=== PATIENT | male | born 1960 | race Caucasian/White ===

== ENCOUNTER 2020-02-01 15:05 | Outpatient (CLI) | payer BC ==
--- NOTE | 2020-02-02 09:12 | MRI ---
MRI CERVICAL SPINE WITHOUT CONTRAST: Date: 02/01/2020 INDICATION: Cervical stenosis of spine. Neck pain. Left upper extremity pain. FINDINGS: Moderate degenerative changes of cervical spine noted. There is loss of disc space with degenerative disc changes at C3-4, C4-5, C5-6, and C6-7. Anterior osteophytes are seen within the cervical vertebr a. Posterior spondylosis. C2-3: No significant abnormality. C3-4: Disc bulge and spondylosis efface the anterior subarachnoid space and abut the anterior cord. Mild bilateral foraminal stenosis due to facet an uncinate hypertrophy. C4-5: Posterior disc bulge and spondylosis efface the anterior subarachnoid space. Facet hypertrophy and uncinate hypertrophy results in mild bilateral foraminal stenosis. C5-6: Posterior disc bulge and spondylosis flatten the thecal sac and mildly efface the anterior sub arachnoid space. Mild bilateral foraminal stenosis, more prominent on the right due to uncinate hyper trophy. C6-7: Posterior disc bulge and spondylosis flatten the thecal sac and efface the anterior subarachno id space. No significant cord impingement. Bilateral foraminal narrowing due to facet and uncinate hy pertrophy. C7-T1: There is a small focal disc protrusion paracentrally to the left associated with broad based bulge and spondylosis. The small protrusion flattens the anterior thecal sac on the left and abuts an d mildly compresses the anterior cord on the left. No significant foraminal stenosis. IMPRESSION: Multilevel degenerative disc changes of the cervical spine as described. Posterior disc bulge and spo ndylosis at multiple levels with foraminal narrowing as described above. Small disc protrusion to the left at C7-T1. POS: OFF
== END 2020-02-01 15:06 | disposition home or self-care (01) ==
LOC: BICMRI 15:05
PROVIDERS: ATTEND Orthopaedic Surgery Hand Surgery
DX: M48.02 Spinal stenosis, cervical region (principal); M47.812 Spondylosis without myelopathy or radiculopathy, cervical region; M50.30 Other cervical disc degeneration, unspecified cervical region; M50.23 Other cervical disc displacement, cervicothoracic region
CPT/HCPCS: 72141

== ENCOUNTER 2021-10-23 07:42 | Outpatient (CLI) | payer BC ==
[2021-10-23] MEDS ORDERED: Iopamidol-370 76% 500 ML 1 ML ONE (15:41)
== END 2021-10-23 07:43 | disposition home or self-care (01) ==
LOC: BICCT 07:42
PROVIDERS: ATTEND Urology
DX: N13.5 Crossing vessel and stricture of ureter without hydronephrosis (principal); Z87.440 Personal history of urinary (tract) infections; R91.1 Solitary pulmonary nodule; K57.30 Diverticulosis of large intestine without perforation or abscess without bleeding
CPT/HCPCS: 74178; Q9967

== ENCOUNTER 2022-01-26 15:15 | Outpatient (CLI) | payer BC ==
[2022-01-26 16:22] LABS: #Eosinphils 0.2 10x3/uL (0.0-0.5); #Monocytes 0.8 10x3/uL (0.0-1.1); #Neutrophils 3.7 10x3/uL (1.5-8.4); %Basophils 0.5 % (0.0-2.0); %Eosinophils 3.6 % (0.0-6.0); %Lymphocytes 22.1 % (18.0-47.0); %Monocytes 12.5 % (0.0-10.0); Hemoglobin 13.6 g/dL (13.5-17.5); Mean Corpuscular HGB CONC 34.5 g/dL (32.0-36.0); Mean Corpuscular Hemoglobin 32.3 pg (27.0-33.0); Mean Corpuscular Volume 93.6 fl (81.2-95.1); Mean Platelet Volume 10.8 fl (7.4-10.4); Platelet Count 178 10x3/uL (150-450); RBC Distribution Width 13.2 % (11.5-14.5); Red Blood Cell (RBC) Count 4.21 10x6/uL (4.32-5.72); White Blood Cell (WBC) Count 6.1 10x3/uL (3.5-10.5)
== END 2022-01-26 15:16 | disposition home or self-care (01) ==
LOC: LABBT 15:15
PROVIDERS: ATTEND Orthopaedic Surgery Hand Surgery
DX: Z01.812 Encounter for preprocedural laboratory examination (principal); G56.02 Carpal tunnel syndrome, left upper limb
CPT/HCPCS: 85025

== ENCOUNTER 2022-01-30 05:45 | Day surgery (SDC) | payer BC ==
[2022-01-26 12:30] VITALS: BMI 28.3
[2022-01-30] MEDS ORDERED: Neomycin-Polymyxin 1 ML AMP ONE (06:14)
[2022-01-30] MEDS ORDERED: Bupivacaine PF 0.5% 30 ML VIAL ONE (06:14)
[2022-01-30] MEDS ORDERED: Bacitracin Zinc Ointment 30 gm TUBE ONE (06:14)
[2022-01-30] MEDS ORDERED: Betamet Acet/Betamet Na Ph 30 MG/5 ML VIAL ONE (06:14)
[2022-01-30] MEDS ORDERED: CEFAZOLIN 2 GM VIAL ONE (06:58)
[2022-01-30] MEDS ORDERED: Propofol 1,000 MG/100 ML VIAL IV ONE (06:58)
[2022-01-30] MEDS ORDERED: fentaNYL Citrate/PF 100 MCG/2 ML SYRINGE ONE (06:58)
[2022-01-30] MEDS ORDERED: Ketamine 50 MG/ML (10ML VIAL) ONE (06:58)
[2022-01-30] MEDS ORDERED: Midazolam HCl 2 mg/2 ml Vial ONE (06:58)
[2022-01-30] MEDS ORDERED: Sodium Chloride 0.9% 100 ML ONE (06:58)
[2022-01-30] MEDS ORDERED: ePHEDrine 50 MG/ML VIAL ONE (07:11)
[2022-01-30] MEDS ORDERED: Ketorolac Tromethamine 30 MG/ML VIAL ONE (08:14)
== END 2022-01-30 08:40 | disposition home or self-care (01) ==
LOC: SDC 05:45
PROVIDERS: ATTEND Orthopaedic Surgery Hand Surgery
PROC: 01N50ZZ Release Median Nerve, Open Approach (ICD-10-PCS; principal; 2022-01-30)
DX: G56.02 Carpal tunnel syndrome, left upper limb (principal); I10 Essential (primary) hypertension; E78.5 Hyperlipidemia, unspecified; N40.0 Benign prostatic hyperplasia without lower urinary tract symptoms; I25.10 Atherosclerotic heart disease of native coronary artery without angina pectoris; Z79.82 Long term (current) use of aspirin; Z79.899 Other long term (current) drug therapy; Z88.8 Allergy status to other drugs, medicaments and biological substances
CPT/HCPCS: J0690; J0702; J1885; J2250; J2704; J3490; S0020

== ENCOUNTER 2022-07-10 08:57 | Outpatient (CLI) | payer BC ==
[2022-07-10] MEDS ORDERED: Iopamidol-370 76% 500 ML MDV (1 ML CHARGE) ONE (10:06)
== END 2022-07-10 08:58 | disposition home or self-care (01) ==
LOC: BICCT 08:57
PROVIDERS: ATTEND Nurse Practitioner Family
DX: R91.1 Solitary pulmonary nodule (principal)
CPT/HCPCS: 71260; 82565; Q9967

== ENCOUNTER 2024-12-08 13:12 | Outpatient (CLI) | payer OTHER | END 2024-12-08 13:13 | disposition home or self-care (01) | LOC: BICRAD 13:12 | PROVIDERS: ATTEND Nurse Practitioner Family | DX: R06.02 Shortness of breath (principal); R42 Dizziness and giddiness | CPT/HCPCS: 36415; 71046; 80053; 81001; 82306; 83036; 83540; 83550; 83880; 84153; 84270; 84403; 84443; 85025; 86038; 86225; 86803 ==

== ENCOUNTER 2025-01-11 10:18 | Outpatient (CLI) | payer OTHER | END 2025-01-11 10:19 | disposition home or self-care (01) | LOC: ULT 10:18 | PROVIDERS: ATTEND Nurse Practitioner Family | DX: R42 Dizziness and giddiness (principal) | CPT/HCPCS: 93880 ==